=== PATIENT | female | born 1950 | race Caucasian/White ===

== ENCOUNTER 2016-10-01 08:35 | Observation (INO) | payer OTHER ==
[~2016-10-01] VITALS: Ht 154.9 cm; Wt 68.7 kg
[~2016-10-01 08:35] MED LIST: ACYCLOVIR400 MG PO; ADVAIR 250/501 DISK IH; ALBUTEROL2.5 MG/3 M IH; ALEVE220 M2 PO; BP MEDICINE; COMBIVENT200 INHALA IH; CYMBALTA; DICLOFENAC SODI75 MG PO; ELAVIL; FLONASE16 G1 BOTH NARES; FLOVENT DISKUS1 DIS1 IH; HYDROCHLOROTHIA25 MG PO; Habitrol,Nicoderm CQ TD; Inderal PO; LEVAQUIN500 MG PO; LEVOFLOXACIN750 MG PO; MAXIDE; MELOXICAM15 MG PO; MOBIC; MUCINEX600 MG PO; NICOTINE PATCH1 EAC1 TD; NICOTINE PATCH1 EAC2 TD; ONDANSETRON4 MG/2 ML IV; Omnicef PO; PANTOPRAZOLE SO40 MG PO; PRAVACHOL40 MG PO; PRAVASTATIN SOD40 MG PO; PREDNISONE10 MG PO; PREDNISONE20 MG PO; Proventil,Ventolin H IH; SERTRALINE HCL100 MG PO; SPIRIVA RESPIMAT4 G1 IH; SPIRIVA1 INHALATI IH; VENTOLIN HFA18 GM IH; VITAMIN D400 UNIT PO; Zithromax PO; [UNRECOGNIZED DRUG - REMARK]; predniSONE PO
[2016-10-01 10:45] LABS: EOSINOPHIL (%) 0.6 % (0-5); EOSINOPHIL COUNT 0.1 K/uL (0-0.3); HEMATOCRIT 43.7 % (36.0-46.0); IMMATURE GRANULOCYTE (%) 0.2 % (0.0-0.7); IMMATURE GRANULOCYTE COUNT 0.2 K/uL; LYMPHOCYTE COUNT 0.9 K/uL (1.0-2.8); MCH 33.3 PG (29.0-34.0); MCHC 33.4 G/DL (30.0-36.0); MCV 99.5 FL (83-99); MEAN PLAT.VOLUME 10.9 uM^3 (9.5-12.4); MONOCYTE (%) 3.8 % (3-12); MONOCYTE COUNT 0.3 K/uL (0-0.8); NEUTROPHIL (%) 84.1 % (45-76); NEUTROPHIL COUNT 6.8 K/uL (1.8-6.4); PLATELET COUNT 224 K/uL (156-360); RBC DIS.WIDTH-CV 12.4 % (11.8-14.6); RBC DIS.WIDTH-SD 44.4 % (39-53); RED BLOOD COUNT 4.39 M/uL (3.80-5.20); WHITE BLOOD COUNT 8.1 K/uL (4.1-10.2)
[2016-10-01 10:58] LABS: CHLORIDE 104 mEq/L (99-109); POTASSIUM 4.5 mEq/L (3.7-5.4); SODIUM 138 mEq/L (136-147)
[2016-10-01 11:00] LABS: GLUCOSE 120 mg/dL (70-99)
[2016-10-01 11:01] LABS: ANION GAP 10 MEQ/L (2-14)
[2016-10-01 11:02] LABS: TOTAL BILIRUBIN 0.4 mg/dL (0.0-1.0)
[2016-10-01 11:04] LABS: ALKALINE PHOSPHATASE 82 IU/L (3-129); GFR ESTIMATE (CALCULATED) 59 mL/min/
[2016-10-01 11:05] LABS: UREA NITROGEN (BUN) 18 mg/dL (9-23)
[2016-10-01 11:06] LABS: TROP-I INTERPRETATION NEGATIVE; TROPONIN-I < 0.01 ng/mL (0.0-0.30)
[2016-10-01] MEDS ORDERED: PROAIR HFA8.5 GM IH (11:11)
[2016-10-01] MEDS ORDERED: PREDNISONE10 MG PO (13:17)
[2016-10-01] MEDS ORDERED: CHERATUSSIN AC473 ML PO (13:18)
[2016-10-01] MEDS ORDERED: SYMBICORT60 INHALAT IH (13:18)
[2016-10-01] MEDS ORDERED: LOSARTAN POTASS25 MG PO (13:18)
[2016-10-01] MEDS ORDERED: LO-DOSE ASPIRIN81 M2 PO (13:19)
[2016-10-01] MEDS ORDERED: ALEVE220 M2 PO (13:19)
[2016-10-01] MEDS ORDERED: VITAMIN D-32000 UNI2 PO (13:19)
[2016-10-01] MEDS ORDERED: CYANOCOBALAM1000 MCG PO (13:19)
[2016-10-01] MEDS ORDERED: MAGNESIUM250 MG PO (13:20)
[2016-10-01 17:39] VITALS: BP 132/63
[2016-10-01 20:44] VITALS: BP 142/65
[2016-10-02 00:21] VITALS: BP 134/68
[2016-10-02 04:35] VITALS: BP 116/55
[2016-10-02 08:35] VITALS: BP 121/65
[2016-10-02] MEDS ORDERED: CEFTIN500 MG PO (13:20)
[2016-10-02] MEDS ORDERED: AZITHROMYCIN250 MG PO (13:20)
== END 2016-10-02 14:20 | disposition home or self-care (01) ==
LOC: EME 08:35 → EDOF 11:53 → 5WEST 11:53 → EDOF 11:53 → 5WEST 17:09
PROVIDERS: Emergency Medicine
DX: J18.9 Pneumonia, unspecified organism (principal); J44.1 Chronic obstructive pulmonary disease with (acute) exacerbation; R09.02 Hypoxemia; Z99.81 Dependence on supplemental oxygen; F17.200 Nicotine dependence, unspecified, uncomplicated; Z82.49 Family history of ischemic heart disease and other diseases of the circulatory system; Z80.0 Family history of malignant neoplasm of digestive organs; Z80.3 Family history of malignant neoplasm of breast
CPT/HCPCS: 71020; 80053; 83605; 83880; 84484; 85025; 87040; 93005; 94640; 94640 76; 94760; 94799; 99202; 99281; 99285; G0378; J0456; J0696; J2930; J7050

== ENCOUNTER → 2016-10-16 | Outpatient (CLI) | payer OTHER ==
[~2016-10-16] MED LIST changes: +AZITHROMYCIN250 MG PO; +CEFTIN500 MG PO; +CHERATUSSIN AC473 ML PO; +CYANOCOBALAM1000 MCG PO; +LO-DOSE ASPIRIN81 M2 PO; +LOSARTAN POTASS25 MG PO; +MAGNESIUM250 MG PO; +PROAIR HFA8.5 GM IH; +SYMBICORT60 INHALAT IH; +VITAMIN D-32000 UNI2 PO
== END | disposition home or self-care (01) ==
LOC: RAD 08:26
DX: J18.9 Pneumonia, unspecified organism (principal)
CPT/HCPCS: 71020